=== PATIENT | male | born 1965 | race Hispanic/Latino ===

== ENCOUNTER 2020-11-25 09:21 | Emergency (ER) | payer OTHER ==
[~2020-11-25] VITALS: Ht 170.2 cm; Wt 83.9 kg
[2020-11-25 09:23] VITALS: BP 119/71
[2020-11-25 11:32] VITALS: BP 130/72
[2020-11-25] MEDS ORDERED: SOLU-MEDROL 40MG VIAL IJ ONE (13:00)
[2020-11-25] MEDS ORDERED: SOLU-MEDROL 40MG VIAL ONE (13:03)
[2020-11-25] MEDS ORDERED: BUPIVACAINE/PF 0.5% 30ML VIAL ONE (13:04)
[2020-11-25 14:11] VITALS: BP 106/71
== END 2020-11-25 14:18 | disposition home or self-care (01) ==
LOC: EDH 09:21
DX: M70.42 Prepatellar bursitis, left knee (principal); Y93.89 Activity, other specified
CPT/HCPCS: 20610; 73560; 99283; J2920 ×2; J3490